=== PATIENT | female | born 1950 | race Caucasian/White ===

== ENCOUNTER 2018-04-05 11:06 | Emergency (ER) | payer MEDICARE, BC ==
[2018-04-05] MEDS ORDERED: LIDOCAINE 1% INJ-PF (10 MG/ML) 30 ML SDV INJ ONE (11:19)
[2018-04-05] MEDS ORDERED: DIPH/PERTUSS(ACELL)/TETANUS VAC/PF 0.5 ML SYR (>=10YO) IM ONE (11:20)
[2018-04-05] MEDS ORDERED: ACETAMINOPHEN 325 MG TABLET PO ONE (11:21)
[2018-04-05 11:29] LABS: ABSOLUTE LYMPHOCYTES (AUTO) 1.5 10^3/uL (0.5-4.7); ABSOLUTE MONOCYTES (AUTO) 0.3 10^3/uL (0.1-1.4); ABSOLUTE NEUT (AUTO) 3.1 10^3/uL (1.7-8.2); BASOPHILS % (AUTO) 0.6 % (0-2); EOSINOPHILS % (AUTO) 0.9 % (0-6); HEMATOCRIT 35.3 % (36.0-47.0); HEMOGLOBIN 11.7 g/dL (12.0-15.5); MEAN CORPUSCULAR HGB CONC 33.1 g/dL (32.0-36.0); MEAN CORPUSCULAR VOLUME 88 fl (80-97); MONOCYTES % (AUTO) 6.8 % (3-13); PLATELET COUNT 322 10^3/uL (150-450); RED BLOOD COUNT 4.03 10^6/uL (3.72-5.28); SEGMENTED NEUTROPHILS % (AUTO) 61.7 % (42-78); TOTAL CELLS COUNTED % (AUTO) 100 %; WHITE BLOOD COUNT 5.1 10^3/uL (4.0-10.5)
--- NOTE | 2018-04-05 11:29 | ER Document Report ---
ED General - General Chief Complaint: Fall Stated Complaint: FALL/HEAD LACERATION Time Seen by Provider: 04/05/18 11:09 TRAVEL OUTSIDE OF THE [place] IN LAST 30 DAYS: No - HPI Notes: Patient is a 68-year-old female with a history of A. fib and on Eliquis who presents to the ED complaining of a mild right-sided headache, laceration of the right lateral forehead and right elbow pain status post fall prior to arrival. Patient states that she was walking on the sidewalk when she caught her toe and fell on her face and arm. Patient states that she tried to use her arm to break her fall. Patient states that she does have pain associated with any movement of that arm. This was a witnessed event. Patient did not lose consciousness. Patient states that aside from the headache and the rt arm pain she feels well. Patient states that she has been ambulatory since then without any difficulties. She denies any drug allergies. Denies any fever, neck pain, changes in vision/speech/mentation/hearing, URI, sore throat, chest pain, palpitations, syncope, cough, shortness of breath, wheeze, dyspnea, abdominal pain, nausea/vomiting/diarrhea, urinary retention, dysuria, hematuria, loss of control of bowel or bladder, numbness/tingling, saddle anesthesia, muscle paralysis, or rash. - Related Data Allergies/Adverse Reactions: No Known Allergies Allergy (Verified 04/05/18 11:13) Past Medical History - Social History Smoking Status: Never Smoker Family History: Reviewed & Not Pertinent Patient has suicidal ideation: No Patient has homicidal ideation: No - Past Medical History Cardiac Medical History: Reports: Hx Atrial Fibrillation, Hx Hypercholesterolemia Renal/ Medical History: Denies: Hx Peritoneal Dialysis GI Medical History: Reports: Hx Gastroesophageal Reflux Disease Past Surgical History: Reports: Hx Cardiac Surgery Review of Systems - Review of Systems -: Yes All other systems reviewed and negative Physical Exam - Vital signs Vitals: Temp Pulse BP Pulse Ox 98.2 F 85 127/63 H 98 04/05/18 11:09 04/05/18 11:09 04/05/18 11:09 04/05/18 11:09 - Notes Notes: PHYSICAL EXAMINATION: accompanied by female nurse GENERAL: Well-appearing, well-nourished and in no acute distress. A&Ox4. Answers questions appropriately. HEAD: cranium: Atraumatic, normocephalic. Non-tender. No britt sign. Face: Rt inferior forehead just superior to the eye brow: there is a 6.5cm laceration noted, somewhat linear. Minimal bleeding noted currently. EYES: Pupils equal round and reactive to light, extraocular movements intact, sclera anicteric, conjunctiva are normal. No raccoon eyes/entrapment. + tenderness to the rt orbit, mild. No nystagmus. ENT: EAC clear b/l. TM's intact b/l without erythema, fluid, or perforation. Nares patent and without discharge. oropharynx clear without exudates. No tonsilar hypertrophy or erythema. Moist mucous membranes. No sinus tenderness. No hemotympanum/CSF discharge. No missing or loose dentition. NECK: Normal range of motion, supple without lymphadenopathy. No rigidity. No midline tenderness. Chest: no ecchymosis. No flail chest. equal rise/fall. Non-tender LUNGS: Breath sounds clear to auscultation bilaterally and equal. No wheezes rales or rhonchi. HEART: Regular rate and rhythm without murmurs, rubs, gallops. ABDOMEN: Soft, nontender, nondistended abdomen. No guarding, no rebound. No masses appreciated. Normal bowel sounds present. No CVA tenderness bilaterally. no ecchymosis. Musculoskeletal: Rt elbow: + ecchymosis and swelling noted. + tenderness to palpation. LROM due to discomfort. N/v intact distal. No other bony tenderness to the RUE. Ext's otherwise b/l: FROM to passive/active. Strength 5+/5. No deficits noted. No bony tenderness of extremities. Back: FROM to passive/active. Strength 5+/5. No vertebral point tenderness, stepoffs, or deformities. No other bony tenderness or ecchymosis. Extremities: No cyanosis, clubbing, or edema b/l. Peripheral pulses 2+. Capillary refill less than 2 seconds. NEUROLOGICAL: NIH grossly negative (limited with pronator and finger nose on the rt arm due to elbow pain). GCS 15. Cranial nerves grossly intact. Normal speech. Normal sensory, motor exams. Reflexes 2+ b/l. FABIENNE's negative. PSYCH: Normal mood, normal affect. SKIN: aside from the laceration/findings noted above there are small abrasions to her knees b/l and to her chin. Course - Re-evaluation Re-evalutation: 04/05/18 12:52 Patient is an afebrile, well-hydrated, 68-year-old female who presents to the ED status post fall with a radial head/neck fracture and contusion/laceration to the right forehead. Vitals are acceptable without any significant tachycardia, tachypnea, or hypoxia. PE is otherwise unremarkable for any focal neurological deficits, neurovascular compromise, open fracture, septic joint. NIH 0, GCS 15, cranial nerves grossly intact. CT scan of the head/cervical spine/face were unremarkable for acute pathology. See x-ray result of the right elbow. Wound was thoroughly irrigated and cleansed. Wound edges were approximated appropriately utilizing 10 simple interrupted sutures. Patient tolerated procedure well without any complications. Splint was placed to the right arm after discussion with Dr. Salas (who will see her on saturday for f/u) . Sling was provided. Patient was given Tylenol p.o. after initial evaluation. I will send her home with a prescription for morphine IR and keflex. Conservative measures otherwise for symptoms. Recheck with orthopedics on Saturday. Recheck with your PCM in 3-5 days or as needed. Return to the ED with any worsening/concerning symptoms otherwise as reviewed in discharge. Sutures will need removed in 5 days. Patient is in agreement. - Vital Signs Vital signs: Temp Pulse Resp BP Pulse Ox 98.2 F 77 16 130/58 H 99 04/05/18 13:26 04/05/18 13:26 04/05/18 13:10 04/05/18 13:26 04/05/18 13:26 - Laboratory Result Diagrams: 04/05/18 11:14 Laboratory results interpreted by me: 04/05/18 11:14 Hgb 11.7 L Hct 35.3 L Procedures - Immobilization Right Arm Time completed: 13:25 Pre-Proc Neuro Vasc Exam: Normal Immobilizer type: Long arm posterior Performed by: PCT Post-Proc Neuro Vasc Exam: Normal, Unchanged from pre-exam - Laceration/Wound Repair Right Face Time completed: 12:45 Wound length (cm): 6.5 Wound's Depth, Shape: Superficial, Irregular Laceration pre-procedure: Sterile PPE donned, Sterile drapes applied, Other - chlorhexadine/saline Anesthetic type: 1% Lidocaine Volume Anesthetic (mLs): 8 Wound explored: Clean, No foreign body removed Irrigated w/ Saline (mLs): 250 Wound Debrided: none Wound Repaired With: Sutures Suture Size/Type: 5:0, Nylon Number of Sutures: 10 Layer Closure?: No Post-procedure wound care: Sterile dressing applied Post-procedure NV exam normal: Yes Complications: No Discharge - Discharge Clinical Impression: Forehead laceration Qualifiers: Encounter type: initial encounter Qualified Code(s): S01.81XA - Laceration without foreign body of other part of head, initial encounter Fracture of radial head, right, closed Qualifiers: Encounter type: initial encounter Fracture alignment: nondisplaced Qualified Code(s): S52.124A - Nondisplaced fracture of head of right radius, initial encounter for closed fracture Condition: Stable Disposition: HOME, SELF-CARE Instructions: Antibiotic Ointment Protection ([facility]), Laceration Care ([facility]), Oral Narcotic Medication ([facility]), Prophylactic Antibiotic ([facility]), Radial Head Fracture ([facility]), Soap Cleansing ([facility]), Splint Precautions ([facility]), Tetanus Immunization Given ([facility]) Additional Instructions: Rest, Ice, Compression, Elevation Use splint/sling as directed Tylenol/ibuprofen as needed F/u with your PCP in 3-5 days for a recheck Follow-up with orthopedics on Saturday* per [place]. Return to the ED with any worsening symptoms and/or development of fever, headache, chest pain, palpitations, syncope, shortness of breath, trouble breathing, abdominal pain, n/v/d, muscle weakness/paralysis, numbness/tingling, swelling, redness, or other worsening symptoms that are concerning to you. Do not shower or bathe for 24 hours. After 24 hours you may shower but no submersion of the wound under water. Keep the original dressing on the wound for 24 hours unless the drainage soaks through. Change the dressing daily thereafter and keep the knots of the suture material clean from any dried discharge. You may leave the wound open to the air once there is no more discharge. Return to the ED and/or your PCM in 2-3 days for a recheck. Monitor for any signs of worsening pain or redness, purulent drainage, streaks, and/or fever. Return to the ED if noticing any of the above symptoms or as needed. Take medications as directed. Your sutures will need to be removed in 5 days. Prescriptions: Cephalexin Monohydrate [Keflex 500 mg Capsule] 500 mg PO TID #21 capsule Morphine Sulfate [Morphine Ir 15 Mg Tablet] 15 mg PO TID #15 tablet Referrals: ALEE SALAS MD [ACTIVE STAFF] - 04/08/18
[2018-04-05 11:31] LABS: INTERNATIONAL RATION (INR) 1.06; PROTHROMBIN TIME 14.3 SEC (11.4-15.4)
[2018-04-05 11:32] LABS: PARTIAL THROMBOPLASTIN TIME 29.2 SEC (23.5-35.8)
--- NOTE | 2018-04-05 12:13 | RADIOLOGY REPORT (SQ) ---
EXAM DESCRIPTION: CT CERVICAL SPINE WITHOUT; CT HEAD WITHOUT; CT FACIAL AREA WITHOUT COMPLETED DATE/TIME: 04/05/2018 12:00 pm; 04/05/2018 11:44 am; 04/05/2018 11:43 am REASON FOR STUDY: fall, head injury, + eliquis COMPARISON: None. TECHNIQUE: Axial images acquired through the face, brain and cervical spine without intravenous cont rast. Images reviewed with brain, subdural, lung, soft tissue and bone windows. Reconstructed coron al and sagittal MPR images reviewed. Images stored on PACS. All CT scanners at this facility use dose modulation, iterative reconstruction, and/or weight based d osing when appropriate to reduce radiation dose to as low as reasonably achievable (ALARA). [facility]: Dose Right [facility]: CareDose [facility]: Dose Right [facility]: Teradose 4D [facility]: [employer] RADIATION DOSE: CT Rad equipment meets quality standard of care and radiation dose reduction techniq ues were employed. CTDIvol: 10.4 mGy. DLP: 251 mGy-cm.; CT Rad equipment meets quality standard of ca re and radiation dose reduction techniques were employed. CTDIvol: 53.2 mGy. DLP: 1070 mGy-cm.; CT Ra d equipment meets quality standard of care and radiation dose reduction techniques were employed. CTD Ivol: 30.4 mGy. DLP: 585 mGy-cm. mGy. LIMITATIONS: None. FINDINGS: Brain: Mild fluid in the right maxillary sinus. Mild polypoid mucosal thickening and flu id in the sphenoid sinus. No intracranial hemorrhage or hydrocephalus. No fracture. Face: Right supraorbital soft tissue laceration without foreign body. Orbits intact. No fracture. Cervical spine: Normal alignment. Spondylosis. No fracture. Soft tissues generally normal. Apica l lung scarring noted. IMPRESSION: 1. Soft tissue facial laceration without underlying foreign body or fracture. 2. Mild paranasal sinus disease, possibly related to the recent trauma. 3. Cervical degenerative changes w ithout fracture or malalignment. TECHNICAL DOCUMENTATION: JOB ID: [id number] Quality ID # [id number]: Final reports with documentation of one or more dose reduction techniques (e.g., Au tomated exposure control, adjustment of the mA and/or kV according to patient size, use of iterative reconstruction technique) 2010 [employer]- All Rights Reserved Reading location - IP[facility]workstation name: [email or web address]
--- NOTE | 2018-04-05 12:21 | RADIOLOGY REPORT (SQ) ---
EXAM DESCRIPTION: ELBOW RIGHT OVER 2 VIEWS COMPLETED DATE/TIME: 04/05/2018 11:57 am REASON FOR STUDY: rt elbow pain s/p fall COMPARISON: None. NUMBER OF VIEWS: Four views right elbow. LIMITATIONS: None. FINDINGS: There is an elbow joint effusion. Mild fracture through the radial head/neck with minimal impacted appearance. Other bones are intact. No subluxation or dislocation. OTHER: No other significant finding. IMPRESSION: Radial head/ neck fracture with mild impaction and associated joint effusion. TECHNICAL DOCUMENTATION: JOB ID: [id number] Reading location - IP/workstation name: [email or web address]
[2018-04-05] MEDS ORDERED: MORPHINE SULFATE IR 15 MG TABLET PO ONE (13:15)
[2018-04-05 13:28] VITALS: BP 130/58
== END 2018-04-05 13:32 | disposition home or self-care (01) ==
LOC: ER 11:06
DX: S52.124A Nondisplaced fracture of head of right radius, initial encounter for closed fracture (principal); S01.81XA Laceration without foreign body of other part of head, initial encounter; S80.212A Abrasion, left knee, initial encounter; S80.211A Abrasion, right knee, initial encounter; W01.0XXA Fall on same level from slipping, tripping and stumbling without subsequent striking against object, initial encounter; Y93.01 Activity, walking, marching and hiking; Y92.480 Sidewalk as the place of occurrence of the external cause; R51 Headache; M25.521 Pain in right elbow; I48.91 Unspecified atrial fibrillation; Z79.01 Long term (current) use of anticoagulants
CPT/HCPCS: 99284; 90471; 36415; 85025; 85610; 85730; 73080; 70450; 70486; 72125; 90715; 12014; 29105; L0120; A9270 ×2; J3490

== ENCOUNTER 2018-04-10 08:04 | Emergency (ER) | payer MEDICARE, BC ==
[2018-04-10 08:11] VITALS: BP 102/57
--- NOTE | 2018-04-10 08:36 | ER Document Report ---
HPI - HPI Pain Level: Denies Notes: Patient is a 68-year-old female who presents to the ED for suture removal status post placement 5 days ago by myself above the right eyebrow. Patient states that her wound has been healing really well and she is very pleased. She has not had any drainage or erythema from the site of the sutures. Patient states that the abrasion on her right patella area is a little more red than it had been despite triple antibiotic ointment. She has no other concerns or complaints. Denies any drug allergies. Denies any headache, fever, neck pain, URI, sore throat, chest pain, palpitations, syncope, cough, shortness of breath , wheeze, dyspnea, abdominal pain, nausea/vomiting/diarrhea, urinary retention, dysuria, hematuria. - ROS Systems Reviewed and Negative: Yes All other systems reviewed and negative - CONSTITUTIONAL Constitutional: DENIES: Fever, Chills - EENT EENT: DENIES: Sore Throat, Ear Pain, Eye problems Past Medical History - Social History Smoking Status: Never Smoker Chew tobacco use (# tins/day): No Frequency of alcohol use: None Drug Abuse: None Family History: Reviewed & Not Pertinent Patient has suicidal ideation: No Patient has homicidal ideation: No - Past Medical History Cardiac Medical History: Reports: Hx Atrial Fibrillation, Hx Hypercholesterolemia Renal/ Medical History: Denies: Hx Peritoneal Dialysis GI Medical History: Reports: Hx Gastroesophageal Reflux Disease Past Surgical History: Reports: Hx Breast Surgery - right breast cancer ,, Hx Cardiac Surgery - ablation Vertical Provider Document - CONSTITUTIONAL Agree With Documented VS: Yes Notes: PHYSICAL EXAMINATION: GENERAL: Well-appearing, well-nourished and in no acute distress. HEAD: [address] with no wound dehiscence or signs of infection. No discharge, erythema, purulence, or streaks. EYES: Pupils equal round and reactive to light, extraocular movements intact, sclera anicteric, conjunctiva are normal. LUNGS: Breath sounds clear to auscultation bilaterally and equal. No wheezes rales or rhonchi. HEART: Regular rate and rhythm without murmurs, rubs, gallops. Musculoskeletal: Rt knee: No effusion, warmth, or swelling. FROM to passive/ active. Strength 5+/5. Extremities: No cyanosis, clubbing, or edema b/l. Peripheral pulses 2+. Capillary refill less than 3 seconds. NEUROLOGICAL: Normal speech, normal gait. PSYCH: Normal mood, normal affect. SKIN: see above as well. Rt knee: there is a skin abrasion noted over the patella that appears mildly erythemic w/o abscess, fluctuance, induration, discharge, or streaks. + mild tenderness ("soreness"). - INFECTION CONTROL TRAVEL OUTSIDE OF THE [place] IN LAST 30 DAYS: No Course - Re-evaluation Re-evalutation: 04/10/18 08:35 Is an afebrile, well-hydrated, 68-year-old female who presents to the ED for suture removal as well as a very mild cellulitis to the abrasion to her right patella. Vitals are acceptable. PE is otherwise unremarkable. Patient is finishing up her Keflex currently. [place] were removed successfully without any complications. Repair appears well-healed and without any wound dehiscence. Low suspicion for any sepsis, neck testing fasciitis, or septic joint. I will send her home with a prescription for Bactrim. Wound dressing placed and wound instructions reviewed for the knee. Recheck with your PCM in 3 -5 days. Return to the ED with any worsening/concerning symptoms otherwise as reviewed in discharge. Patient is in agreement. - Vital Signs Vital signs: Temp Pulse Resp BP Pulse Ox 98.1 F 75 16 102/57 L 97 04/10/18 08:10 04/10/18 08:10 04/10/18 08:10 04/10/18 08:10 04/10/18 08:10 Discharge - Discharge Clinical Impression: Visit for suture removal Abrasion of right knee Qualifiers: Encounter type: initial encounter Qualified Code(s): S80.211A - Abrasion, right knee, initial encounter Condition: Stable Disposition: HOME, SELF-CARE Instructions: Suture Removal Additional Instructions: May use scar cream as needed Keep the skin clean Wash with soap and water Tylenol/ibuprofen if needed Triple antibiotic ointment daily for the knee Take medication as directed Monitor for any worsening symptoms Recheck with your PCM in 3-5 days Return to the ED with any worsening symptoms and/or development of fever, headache, chest pain, palpitations, syncope, shortness of breath, trouble breathing, abdominal pain, n/v/d, abscess, purulent discharge, red streaks, worsening swelling, or other worsening symptoms that are concerning to you. Prescriptions: Sulfamethoxazole/Trimethoprim [Bactrim Ds Tablet] 1 each PO BID #[id number] tablet Referrals: [facility] [Provider Group] - Follow up as needed [facility] [Provider Group] - Follow up as needed
== END 2018-04-10 08:46 | disposition home or self-care (01) ==
LOC: ER 08:04
DX: Z48.02 Encounter for removal of sutures (principal); S80.211A Abrasion, right knee, initial encounter; L03.115 Cellulitis of right lower limb; W19.XXXA Unspecified fall, initial encounter; Z85.3 Personal history of malignant neoplasm of breast